=== PATIENT | female | born 1985 | race Caucasian/White ===

== ENCOUNTER 2017-06-21 04:30 | Inpatient (IN) | payer OTHER ==
[~2017-06-21] VITALS: Ht 170.2 cm; Wt 74.4 kg
[2017-06-21 06:27] LABS: ABSOLUTE BASOPHIL COUNT 0 /CUMM (0.0-0.2); ABSOLUTE EOSINOPHIL COUNT 0 /CUMM (0.0-0.7); ABSOLUTE GRANULOCYTE CT 5.8 /CUMM (1.4-6.5); ABSOLUTE LYMPH COUNT 1.1 /CUMM (1.2-3.4); ABSOLUTE MONOCYTE COUNT 0.3 /CUMM (0.10-0.60); BASOPHIL % 0.5 % (0.0-2.0); EOSINOPHIL % 0.4 % (0-5); GRANULOCYTE % 79.8 % (42.2-75.2); HEMATOCRIT 36.1 % (37-47); MEAN CORPUSCULAR HGB 30.9 PG (27.0-31.0); MEAN CORPUSCULAR HGB CONC 34.3 G/DL (33.0-37.0); MEAN CORPUSCULAR VOLUME 90.3 FL (81.0-99.0); MEAN PLATELET VOLUME 8.7 FL (7.4-10.4); PLATELET COUNT 219 /CUMM (130-400); RBC DISTRIBUTION WIDTH 13.7 % (11.5-14.5); WHITE BLOOD CELL COUNT 7.3 /CUMM (4.8-10.8)
[2017-06-21 10:47] VITALS: BP 113/68
--- NOTE | 2017-06-21 11:06 | History & Physical ---
General Information and HPI MD Statement: I have seen and personally examined DEBBI MONTOYA and documented this H&P. The patient is a 31 year old female at 40 weeks and 6 days gestation who presented with a chief complaint of labor pains +FM -ROM, -VB.. Source of Information: patient, old records Exam Limitations: no limitations History of Present Illness: Patient well known to obstetric practice transferred from Dr. Miller at 28 weeks has had good growth 30 pound weight gain Rh+, GBS negative, one-hour PG negative growth 42nd percentile admitted intact at 1-2 cm progressed to 3-4 cm was admitted and asked for an epidural nonstress test category 1 with occasional late and variable decelerations contractions every 3-4 minutes. 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 Denies: chills, fever. EENTM: Denies: blurred vision, double vision, visual changes. Cardiovascular: Denies: chest pain. Respiratory: Denies: cough. Neurological/Psychological: Denies: anxiety, depressed. Exam & Diagnostic Data Last 24 Hrs of Vital Signs/I&O vss Vital Signs Date Time Temp Pulse Resp B/P B/P Pulse O2 O2 Flow FiO2 Mean Ox Delivery Rate 06/21 1047 113/68 Intake & Output 06/21 1600 06/21 0800 06/21 0000 Intake Total Output Total Balance Patient 164 lb Weight Obstetric Exam Wgt Gained During : 30# Pelvimetry: Seems adequate Dilation (cm): 3 Effacement (%): 90 Station: -1 Membranes: intact Fluid: unknown Fundal Height (cm): 40 Multiple Gestation? No Contractions: q4min #1 - FHR Baseline: 140 Category: 1 Estimated Weight: 3700g Presentation: vtx Patient for Induction? No Labs Blood Type & Rh: o POS Antibody Screen: NEG Hct/Hgb & Platelets #1: 38.7/13.1/227 Hct/Hgb & Platelets #2: 35.4/12.3/220 Rubella: IMM VDRL #1: NR VDRL #2: NR HbsAg: NRG HIV #1: NRG HIV #2 NRG 1 Hr P Group B Strep: NEG Initial Ultrasound: 11/03/16 8 WEEKS Anatomy Ultrasound: 20 WEEKS AT atu Ultrasound for EFW: 42%TILE AT 38 WEEKS Genetic Testing: cf TRIPLE SCREEN NEGATIVE Last 24 Hrs of Labs/Florencio: Laboratory Tests 06/21/17 0540: CBC w Diff NO MAN DIFF REQ, RBC 4.00 L, MCV 90.3, MCH 30.9, MCHC 34.3, RDW 13.7 , MPV 8.7, Gran % 79.8 H, Lymphocytes % 15.3 L, Monocytes % 4.0, Eosinophils % 0.4, Basophils % 0.5, Absolute Granulocytes 5.8, Absolute Lymphocytes 1.1 L, Absolute Monocytes 0.3, Absolute Eosinophils 0, Absolute Basophils 0, Urinalysis LIGHT H, Urine Color YEL, Urine Clarity HAZY H, Urine pH 7.0, Ur Specific [place] 1.020, Urine Protein NEG, Urine Ketones TRACE H, Urine Nitrite NEG, Urine Bilirubin NEG, Urine Urobilinogen 0.2, Ur Leukocyte Esterase NEG, Ur Microscopic SEDIMENT EXAMINED, Urine RBC 5-10 H, Ur Epithelial Cells FEW, Urine Bacteria FEW H, Urine Hemoglobin MOD H, Urine Glucose NEG Assessment/Plan Assessment/Plan: iup @ TERM ACTIVE LABOR EXPECTANT MANAGEMENT As Ranked By This Provider Problem List: 1. Core Measures Venous Thromboembolism VTE Risk Factors / No Mechanical VTE Prophylaxis d/t Early Ambulation No VTE Pharm Prophylaxis d/t LowRisk-No Interven Req'd Attending MD Review Statement Attending Statement Attending MD Statement: examined this patient, discussed with family, discussed w/nursing
--- NOTE | 2017-06-21 16:21 | PN- OBGYN ---
Surgical Brief Attending Note Brief Attending Note: Pt fully dilated +1 station FHR catigory 1 will start pushing now with epidural.
--- NOTE | 2017-06-21 17:06 | Labor & Delivery Summary ---
Delivery Summary Vaginal Delivery: Vaginal: vertex Episiotomy/Lacerations: Episiotomy/Lacerations: none Placenta: Placenta: spontanteous, nuchal cord (x_) Anesthesia: block Apgars - 1 Min: 9 Apgars - 5 Min: 9 Additional Comments: pushed 1 hour with epidural intact perineum
[2017-06-22 08:01] LABS: ABSOLUTE BASOPHIL COUNT 0 /CUMM (0.0-0.2); ABSOLUTE EOSINOPHIL COUNT 0 /CUMM (0.0-0.7); ABSOLUTE GRANULOCYTE CT 6.9 /CUMM (1.4-6.5); WHITE BLOOD CELL COUNT 9.1 /CUMM (4.8-10.8)
[2017-06-22 08:25] LABS: ABSOLUTE LYMPH COUNT 1.6 /CUMM (1.2-3.4); ABSOLUTE MONOCYTE COUNT 0.7 /CUMM (0.10-0.60); BASOPHIL % 0.4 % (0.0-2.0); EOSINOPHIL % 0.5 % (0-5); MEAN CORPUSCULAR HGB 31.2 PG (27.0-31.0); MEAN CORPUSCULAR VOLUME 91.7 FL (81.0-99.0); MEAN PLATELET VOLUME 8.9 FL (7.4-10.4); PLATELET COUNT 184 /CUMM (130-400); RBC DISTRIBUTION WIDTH 13.9 % (11.5-14.5); RED BLOOD CELL CT 3.18 /CUMM (4.20-5.40)
[2017-06-22 08:29] LABS: HEMATOCRIT 29.2 % (37-47)
--- NOTE | 2017-06-22 14:31 | PN- OBGYN ---
Surgical Brief Attending Note Brief Attending Note: pt feeling well. amb / void / mamie po. pain well controlled. +bf w/o difficulty. afeb, v/ss nad abd soft nt ff heriberto min lochia ext nt tr b/l le ed hct 36-->29 a/p ppd 1 s/p , doing well -cont routine pp care -ant d/c home jose
[2017-06-23] MEDS ORDERED: IBUPROFEN800 M1 PO (08:03)
--- NOTE | 2017-06-23 08:06 | PN- Post Delivery/GYN ---
Subjective Subjective: feeling well Review of Systems Constitutional: Reports: no symptoms. Denies: chills, fever. EENTM: Denies: blurred vision, double vision, visual changes. Cardiovascular: Denies: edema. Neurological/Psychological: Denies: anxiety, depressed. Objective Last 24 Hrs of Vital Signs/I&O vss Physical Exam General Appearance Alert, Oriented X3, Cooperative, No Acute Distress Cardiovascular Regular Rate Lungs Clear to Auscultation Abdomen Soft, fundus firm Pelvic (FEMALE) lochia serosanganous Current Medications: Current Medications Sig/Rene Start time Last Medication Dose Route Stop Time Status Admin Acetaminophen 650 MG Q4P PRN 06/21 171 AC PO Hydroxyzine HCl 50 MG AT BEDTIME NEED.. 06/21 1715 AC PO Ibuprofen 800 MG .STK-MED ONE 06/22 1625 DC PO 06/22 1626 Ibuprofen 800 MG .STK-MED ONE 06/22 0939 DC PO 06/22 0940 Ibuprofen 800 MG Q6P PRN 06/21 1715 AC 06/23 PO 0559 Magnesium Hydroxide 30 ML DAILY NEEDED PRN 06/21 1715 AC PO Assessment/Plan Assessment/Plan ppd #2 vss afebrile plan d/c home Problem List: 1. Attending MD Review Statement Attending Statement Attending MD Statement: examined this patient, discussed with nursing
== END 2017-06-23 10:24 | DRG 775 ==
LOC: CBCO 04:30 → GNO 10:30
PROVIDERS: Obstetrics & Gynecology
PROC: 10E0XZZ Delivery of Products of Conception, External Approach (ICD-10-PCS; principal; 2017-06-21)
DX: O80 Encounter for full-term uncomplicated delivery (principal); Z37.0 Single live birth; Z3A.40 40 weeks gestation of pregnancy
CPT/HCPCS: GNOS; 36415; 81001; 87086; J7120